=== PATIENT | female | born 1955 ===

== ENCOUNTER 2017-07-08 12:00 | Emergency (ER) | payer MEDICAID, MEDICARE ==
[2017-07-08 12:31] VITALS: BP 122/61; PULSE 62; RESP 16; TEMP 97.6; O2SAT 97
--- NOTE | 2017-07-08 14:34 | C.PDOC ---
History Of Present Illness PT WAS TRANSFER FROM MAIN ED TO FAST TRACK AFTER BEING IN ED FOR 2.5 HOURS 62 yo female w/PMHx of NIDDm come in for evaluation of Left upper back painful swelling gradually developed for past 2-3 weeks. Pt reports, was taking antibiotic without significant improvement. Pt noted some wound oozing for past few days. Otherwise, pt denies high fever, chills, headache, dizziness, CP, SOB , abd. pain, N/V, denies any other active complaints. Ambulate to ED for evaluation, not in any apparent distress. Time Seen by Provider: 07/08/17 14:19 Chief Complaint (Nursing): Abnormal Skin Integrity History Per: Patient History/Exam Limitations: no limitations Onset/Duration Of Symptoms: Days Current Symptoms Are (Timing): Still Present Location Of Injury: Left: Back Past Medical History Reviewed: Historical Data, Nursing Documentation, Vital Signs Vital Signs: Last Vital Signs Temp 97.6 F 07/08/17 12:21 Pulse 62 07/08/17 12:21 Resp 16 07/08/17 12:21 BP 122/61 07/08/17 12:21 Pulse Ox 97 07/08/17 16:08 - Medical History PMH: Asthma, Depression, HTN Surgical History: Carotid Endarterectomy Family History: States: No Known Family Hx - Social History Hx Alcohol Use: No Hx Substance Use: No - Immunization History Hx Tetanus Toxoid Vaccination: Yes Hx Influenza Vaccination: Yes Hx Pneumococcal Vaccination: Yes Review Of Systems Except As Marked, All Systems Reviewed And Found Negative. Constitutional: Negative for: Fever, Chills Cardiovascular: Negative for: Chest Pain Respiratory: Negative for: Shortness of Breath Gastrointestinal: Negative for: Nausea, Vomiting, Abdominal Pain, Diarrhea Musculoskeletal: Positive for: Back Pain Neurological: Negative for: Weakness, Numbness, Headache, Dizziness Physical Exam - Physical Exam Appears: Well, Non-toxic, No Acute Distress Skin: Normal Color, Warm, Dry, Other (diffuse erythema Left upper back with central induration 3cm diameter, (+) yellow wound discharge with strong odor. No flatulance, no proximal streaking.) Head: Normacephalic Eye(s): bilateral: PERRL Nose: No Flaring, No Discharge Oral Mucosa: Moist, No Drooling Tongue: Normal Appearing Lips: Normal Appearing Throat: No Erythema, No Drooling Neck: Trachea Midline, Supple Cardiovascular: Rhythm Regular Respiratory: No Stridor, No Wheezing Gastrointestinal/Abdominal: Soft, No Tenderness, No Distention, No Guarding Extremity: Normal ROM, No Deformity, No Swelling Neurological/Psych: Oriented x3, Normal Speech ED Course And Treatment - Laboratory Results Result Diagrams: 07/08/17 14:42 07/08/17 14:42 O2 Sat by Pulse Oximetry: 97 (RA) Pulse Ox Interpretation: Normal Progress Note: On re-eval, pt reports no significant improvement. Abscess s/p I &D in ED. Wound cx, Blood Cx- pending. Vancomycin given. case discussed with Med-on-call and admission arranged with Dx: Abscess with cellulitis, NIDDM. Disposition - Disposition Disposition: HOSPITALIZED Disposition Time: 15:19 Condition: STABLE - Clinical Impression Clinical Impression: Cellulitis, Abscess - Incision & Drainage Of Abscess Anesthesia: Lidocaine 2% Prep Used: Betadine Procedure: Incised W/Scalpel Blade#: (15), Drained Pus, Irrigated Cavity W/ Saline, Probed To Break Up Loculations, Packed W/Gauze, Cultures Obtained And Sent To Lab
[2017-07-08] MEDS ORDERED: Sodium Chloride 0.9% 500 ML IV ONE (14:36)
[2017-07-08 14:53] LABS: BASO % 0.3 % (0.0-2.0); EOS # 0.1 K/uL (0.0-0.7); EOS % 1.7 % (0.0-4.0); HEMOGLOBIN 10.7 g/dL (11.0-16.0); LYMPH # 1.6 K/uL (1.0-4.3); MEAN CELL VOLUME 94.3 fL (81.0-99.0); MEAN CORPUSCULAR HEMOGLOBIN 32.1 pg (27.0-31.0); MEAN PLATELET VOLUME 8.8 fL (7.2-11.7); MONO # 0.8 K/uL (0.0-0.8); MONO % 15.5 % (0.0-10.0); NEUT # 2.4 K/uL (1.8-7.0); NEUT % 49.5 % (50.0-75.0); RBC 3.33 Mil/uL (3.80-5.20); RED CELL DISTRIBUTION WIDTH 13.8 % (11.5-14.5); WHITE BLOOD COUNT 4.9 K/uL (4.8-10.8)
[2017-07-08] MEDS ORDERED: Vancomycin 1 gm/NS 200 ml 1 GM/200 ML BAG IVPB STA (14:55)
[2017-07-08] MEDS ORDERED: Lidocaine 2% Inj (20ml) INFIL STA (14:56)
[2017-07-08] MEDS ORDERED: Lidocaine 2% Inj (20ml) ONE (14:59)
[2017-07-08] MEDS ORDERED: [UNRECOGNIZED DRUG - OTHER] IVPB ONE (15:01)
[2017-07-08] MEDS ORDERED: VANCOMYCIN IVPB ONE (15:01)
[2017-07-08 15:36] LABS: ALB/GLOB RATIO 1.1 (1.0-2.1); ALBUMIN 3.6 g/dL (3.5-5.0); CALCIUM 8.7 mg/dl (8.6-10.4)
== END 2017-07-08 17:30 | disposition left against medical advice (07) ==
LOC: C.ER 12:00 → C.9E 15:15 → UNDOADMOB 15:15 → UNDODISOB 17:30
DX: L02.212 Cutaneous abscess of back [any part, except buttock and flank] (principal); I10 Essential (primary) hypertension; E11.9 Type 2 diabetes mellitus without complications; F17.210 Nicotine dependence, cigarettes, uncomplicated
CPT/HCPCS: 10060; 80053; 82948; 85025; 87040; 87070; 96365; 99283; J3370; J7040

== ENCOUNTER 2017-07-11 14:56 | Emergency (ER) | payer MEDICAID ==
[2017-07-11 15:16] VITALS: BP 171/71; PULSE 96; RESP 20; TEMP 98.2; O2SAT 96
--- NOTE | 2017-07-11 15:45 | C.PDOC ---
History Of Present Illness SP I&D BACK ABSCESS 07/08 FOR WOUND CHECK. I&D BY SURG RESIDENT. NO NEW SX. S/P ABX, VANCO. AMA FROM ADMISSION. EXAM NAD SKIN +S/P ABSCESS WOUND OPEN W GAUZE PACKING. MIN LOCAL INDURATION, NO ERYTHEMA. NO PURULENT DC PROC PACKING REMOVED. WOUND DRESSED Time Seen by Provider: 07/11/17 15:34 Chief Complaint (Nursing): Abnormal Skin Integrity History Per: Patient History/Exam Limitations: no limitations Past Medical History Reviewed: Historical Data, Nursing Documentation, Vital Signs Vital Signs: Last Vital Signs Temp 98.2 F 07/11/17 15:12 Pulse 96 H 07/11/17 15:12 Resp 20 07/11/17 15:12 BP 171/71 H 07/11/17 15:12 Pulse Ox 96 07/11/17 17:24 - Medical History PMH: Asthma, Depression, HTN Surgical History: Carotid Endarterectomy Family History: States: No Known Family Hx - Social History Hx Alcohol Use: No Hx Substance Use: No - Immunization History Hx Tetanus Toxoid Vaccination: Yes Hx Influenza Vaccination: Yes Hx Pneumococcal Vaccination: Yes Review Of Systems Except As Marked, All Systems Reviewed And Found Negative. Physical Exam - Physical Exam Appears: Non-toxic, No Acute Distress Skin: Normal Color, Warm, Other (S/P abscess wound open with gauze packing. Minimal local induration, no erythema. No purulent discharge.) Head: Atraumatic, Normacephalic Eye(s): bilateral: Normal Inspection Neurological/Psych: Oriented x3, Normal Speech, Normal Motor, Normal Sensation ED Course And Treatment O2 Sat by Pulse Oximetry: 96 (RA) Pulse Ox Interpretation: Normal Medical Decision Making Medical Decision Making: PROC PACKING REMOVED. WOUND DRESSED Disposition Counseled Patient/Family Regarding: Diagnosis, Need For Followup - Disposition Referrals: YOUR,PMD [Other] Disposition: HOME/ ROUTINE Disposition Time: 15:45 Condition: IMPROVED Instructions: Abscess Follow-up (ED) Forms: [facility] (Czech) Print Language: YORUBA - Clinical Impression Clinical Impression: Abscess re-check - PA / [employer] T[employer]ER / Resident Statement MD/DO has reviewed & agrees with the documentation as recorded. - Scribe Statement The provider has reviewed the documentation as recorded by the Lizandroibe Aiden Howell Provider Attestation: All medical record entries made by the Scribe were at my direction and personally dictated by me. I have reviewed the chart and agree that the record accurately reflects my personal performance of the history, physical exam, medical decision making, and the department course for this patient. I have also personally directed, reviewed, and agree with the discharge instructions and disposition.
== END 2017-07-11 15:48 | disposition home or self-care (01) ==
LOC: C.ER 14:56
DX: Z48.00 Encounter for change or removal of nonsurgical wound dressing (principal)

== ENCOUNTER 2017-08-11 14:40 | Emergency (ER) | payer MEDICAID ==
[2017-08-11 14:50] VITALS: BP 155/72; PULSE 62; RESP 18; TEMP 97.8; O2SAT 95
--- NOTE | 2017-08-11 15:01 | C.PDOC ---
History Of Present Illness 62 y/o female presents to the emergency department for wound check. Patient reports having a small sebaceous cyst in the left upper back. Of note, she recently had surgery for an infected cyst in that area. Time Seen by Provider: 08/11/17 14:54 Chief Complaint (Nursing): Wound Check History Per: Patient History/Exam Limitations: no limitations Onset/Duration Of Symptoms: Days Ago (x15) Current Symptoms Are (Timing): Still Present Location Of Injury: Left: Back Past Medical History Reviewed: Historical Data, Nursing Documentation, Vital Signs Vital Signs: Last Vital Signs Temp 97.8 F 08/11/17 14:47 Pulse 62 08/11/17 14:47 Resp 18 08/11/17 14:47 BP 155/72 H 08/11/17 14:47 Pulse Ox 95 08/11/17 15:01 - Medical History PMH: Asthma, Depression, HTN Surgical History: Carotid Endarterectomy Family History: States: No Known Family Hx - Social History Hx Alcohol Use: No Hx Substance Use: No - Immunization History Hx Tetanus Toxoid Vaccination: Yes Hx Influenza Vaccination: Yes Hx Pneumococcal Vaccination: Yes Review Of Systems Except As Marked, All Systems Reviewed And Found Negative. Constitutional: Negative for: Fever, Chills Skin: Positive for: Other (sebaceous cyst to left upper back). Negative for: Rash, Lesions Physical Exam - Physical Exam Appears: Non-toxic, No Acute Distress Skin: Normal Color, Warm, Dry, No Rash, Other (Healed scarring in left upper scapula area. (+) Separate cyst at the 1 oclock position measuring 1x1 cm, non- tender, no erythema) Neurological/Psych: Oriented x3, Normal Speech ED Course And Treatment O2 Sat by Pulse Oximetry: 95 (RA) Pulse Ox Interpretation: Normal Medical Decision Making Medical Decision Making: Impression: nicely healed sebaceous cyst surgery in L upper scapular region. new sebaceous gland superior and medial to original wound is NOT part of the original wound Plan: Area may be gently warmed and sebum expressed without I/D Disposition Doctor Will See Patient In The: Office Counseled Patient/Family Regarding: Studies Performed, Diagnosis - Disposition Referrals: [facility] [Outside] Disposition: HOME/ ROUTINE Disposition Time: 15:00 Condition: GOOD Additional Instructions: panuela caliente y cuando se esuave lo puede oprimir "sqeeze" para que sale el cebum (cosa ciro) Sigue con benitez medico vel necessario. Forms: General Discharge Instructions, [facility] (Thai) Print Language: MAURITANIAN - POA Present On Arrival: None - Clinical Impression Clinical Impression: H/O sebaceous cyst - Scribe Statement The provider has reviewed the documentation as recorded by the Lizandroibcorwin Villanueva Provider Attestation: All medical record entries made by the Lizandroibcorwin were at my direction and personally dictated by me. I have reviewed the chart and agree that the record accurately reflects my personal performance of the history, physical exam, medical decision making, and the department course for this patient. I have also personally directed, reviewed, and agree with the discharge instructions and disposition.
== END 2017-08-11 15:08 | disposition home or self-care (01) ==
LOC: C.ER 14:40
DX: L72.3 Sebaceous cyst (principal); I10 Essential (primary) hypertension